=== PATIENT | female | born 1960 | race Caucasian/White ===

== ENCOUNTER 2025-06-21 06:25 | Inpatient (IN) | payer MEDICARE, BC ==
[~2025-06-21] VITALS: Ht 152.4 cm; Wt 65.8 kg
[2025-06-21] MEDS ORDERED: ANESTHESIA TRAY IN PYXIS 1 EA TRAY MC ONE (07:05)
[2025-06-21] MEDS ORDERED: VANCOMYCIN 1 GM VIAL ONE (07:05)
[2025-06-21] MEDS ORDERED: OXYMETAZOLINE HCL NASAL SPRAY 30 ML BOTTLE NS ONE (07:05)
[2025-06-21] MEDS ORDERED: dexaMETHasone SOD PHOSPHATE 2 ML ONE (07:05)
[2025-06-21] MEDS ORDERED: LIDOCAINE 2%-EPI 1:100,000 30 ML VIAL ONE (07:05)
[2025-06-21] MEDS ORDERED: ROCURONIUM BROMIDE 50 MG/5 ML ONE (07:21)
[2025-06-21] MEDS ORDERED: FENTANYL PF 250MCG/5ML AMPUL ONE (07:21)
[2025-06-21] MEDS ORDERED: LABETALOL HCL IV 100MG VIAL ONE (07:45)
[2025-06-21] MEDS ORDERED: MAGNESIUM HYDROXIDE 30 ML UDC PO PRN (12:30)
[2025-06-21] MEDS ORDERED: MAG HYDROX/AL HYDROX/SIMETH 30 ML UDC PO PRN (12:30)
[2025-06-21] MEDS ORDERED: ONDANSETRON HCL/PF 4 MG/2 ML VIAL IVP PRN ×2 (12:30→14:00)
[2025-06-21 12:47] VITALS: BP 120/60; TEMP 98.3; O2SAT 95
[2025-06-21] MEDS: IV NS 0.9% 1,000 ML IV PRN (13:53)
[2025-06-21] MEDS ORDERED: HYDROMORPHONE INJ 2 MG/ML DISP.SYRIN IV PRN (14:00)
[2025-06-21] MEDS: ACETAMINOPHEN 325 MG TABLET PO PRN (15:36)
[2025-06-21 16:00] VITALS: BP 141/79; TEMP 98.6; O2SAT 97
[2025-06-21] MEDS: VANCOMYCIN 1 GM in IV D5W 250ml IV SCH (19:57)
[2025-06-21 20:00] VITALS: BP 146/73; TEMP 97.7; O2SAT 98
[2025-06-22 08:00] VITALS: BP 146/64; TEMP 98.6; O2SAT 96
[2025-06-22] MEDS ORDERED: PETROLATUM,WHITE PACKET 5 GM PACKET TP PRN (09:00)
[2025-06-22] MEDS ORDERED: VITA113O5 TP (13:29)
[2025-06-22] MEDS ORDERED: VALA10002 PO (13:29)
[2025-06-22] MEDS ORDERED: CHLO473M3 MM (13:29)
[2025-06-22] MEDS: VALACYCLOVIR HCL 500 MG TABLET PO ONE (13:38)
== END 2025-06-22 14:25 | disposition home or self-care (01) | DRG 497 ==
LOC: DS 06:25 → MED 11:48
PROC: 0NSR04Z Reposition Maxilla with Internal Fixation Device, Open Approach (ICD-10-PCS; 2025-06-21)
PROC: 0NST04Z Reposition Right Mandible with Internal Fixation Device, Open Approach (ICD-10-PCS; 2025-06-21)
PROC: 0NUV07Z Supplement Left Mandible with Autologous Tissue Substitute, Open Approach (ICD-10-PCS; 2025-06-21)
PROC: 0NUR07Z Supplement Maxilla with Autologous Tissue Substitute, Open Approach (ICD-10-PCS; 2025-06-21)
PROC: 0NUT07Z Supplement Right Mandible with Autologous Tissue Substitute, Open Approach (ICD-10-PCS; 2025-06-21)
PROC: 0N5R0ZZ Destruction of Maxilla, Open Approach (ICD-10-PCS; 2025-06-21)
PROC: 0N5V0ZZ Destruction of Left Mandible, Open Approach (ICD-10-PCS; 2025-06-21)
PROC: 0N5T0ZZ Destruction of Right Mandible, Open Approach (ICD-10-PCS; 2025-06-21)
PROC: 0NSV04Z Reposition Left Mandible with Internal Fixation Device, Open Approach (ICD-10-PCS; principal; 2025-06-21 07:30)
DX: S02.40CK Maxillary fracture, right side, subsequent encounter for fracture with nonunion (principal); S02.40DK Maxillary fracture, left side, subsequent encounter for fracture with nonunion; S02.69XK Fracture of mandible of other specified site, subsequent encounter for fracture with nonunion; E78.5 Hyperlipidemia, unspecified; I10 Essential (primary) hypertension; R73.03 Prediabetes; K13.0 Diseases of lips; D16.5 Benign neoplasm of lower jaw bone; M27.2 Inflammatory conditions of jaws; X58.XXXD Exposure to other specified factors, subsequent encounter
CPT/HCPCS: 82962-TC; A4217; A4223; A4338; C1713; G0378; J1100; J2704; J3010; J3373; J3490; J7030; J7060

== ENCOUNTER 2025-08-13 11:47 | Emergency (ER) | payer MEDICARE, BC ==
[~2025-08-13] VITALS: Ht 170.2 cm; Wt 61.7 kg
[~2025-08-13 11:47] MED LIST: CHLO473M3 MM; VALA10002 PO; VITA113O5 TP
[2025-08-13] MEDS ORDERED: LIDOCAINE 1%-EPI 1:100,000 20 ML VIAL ONE (12:17)
[2025-08-13] MEDS ORDERED: ACETAMINOPHEN 325 MG TABLET ONE (12:21)
[2025-08-13] MEDS ORDERED: TDAP [DIPH/PERTUSSIS/TET] 0.5 ML VIAL IM ONE (12:21)
[2025-08-13] MEDS: ACETAMINOPHEN 325 MG TABLET PO ONE (12:30)
[2025-08-13] MEDS: LIDOCAINE 1%-EPI 1:100,000 50 ML VIAL IJ ONE (12:30)
[2025-08-13] MEDS: TDAP [DIPH/PERTUSSIS/TET] 0.5 ML VIAL IM ONE (12:34)
[2025-08-13] MEDS ORDERED: CEPH-570 PO (13:03)
[2025-08-13 13:24] VITALS: BP 170/91; TEMP 98.1; O2SAT 99
== END 2025-08-13 13:25 | disposition home or self-care (01) ==
LOC: ER 12:02
DX: S81.812A Laceration without foreign body, left lower leg, initial encounter (principal); W22.8XXA Striking against or struck by other objects, initial encounter; Y93.89 Activity, other specified; Y92.89 Other specified places as the place of occurrence of the external cause; Y99.9 Unspecified external cause status
CPT/HCPCS: 12004; 73590; 90471; 90715; 99283; J3490

== ENCOUNTER 2025-08-24 22:33 | Emergency (ER) | payer MEDICARE, BC ==
[~2025-08-24] VITALS: Ht 167.6 cm; Wt 68.0 kg
[~2025-08-24 22:33] MED LIST changes: +CEPH-570 PO
[2025-08-25 00:17] VITALS: BP 148/78; TEMP 98.2; O2SAT 98
== END 2025-08-25 00:36 | disposition home or self-care (01) ==
LOC: ER 22:37
DX: S81.812D Laceration without foreign body, left lower leg, subsequent encounter (principal); Z91.048 Other nonmedicinal substance allergy status; Z60.2 Problems related to living alone; X58.XXXD Exposure to other specified factors, subsequent encounter